=== PATIENT | male | born 1945 | race Caucasian/White ===

== ENCOUNTER 2017-10-09 13:03 | Emergency (ER) | payer OTHER ==
[~2017-10-09] VITALS: Ht 193 cm; Wt 156.5 kg
[~2017-10-09 13:03] MED LIST: ASPIRIN CHEW81 MG PO; AVALIDE 150-121 EACH PO; AVODART0.5 MG PO; CITRACAL PO; CRESTOR10 MG PO; FENOFIBRATE145 MG PO; FUROSEMIDE40 MG PO; GLIMEPIRIDE4 MG PO; HUMALOG100 UNIT/1 SC; HUMULIN R500 UNIT/1; JENTADUETO 2.51 EAC2 PO; LANTUS SOLOSTAR SQ; LOSARTAN-HCTZ1 EAC2 PO; MELOXICAM15 MG PO; METFORMIN HCL1000 MG PO; METOPROLOL TART25 MG PO; MULTIVITAMIN PO; NAPROXEN250 MG PO; NORCO 10-325 T1 EACH PO; NORVASC5 MG PO; OSTEO BI-FLEX1 EAC1 PO; POTASSIUM CHLO10 MEQ PO; TRAZODONE HCL50 MG PO; TRULICITY INJ; VICTOZA 2-0.6 MG/0.1 SQ; VICTOZA 3-0.6 MG/0.1 SC; [UNRECOGNIZED DRUG - OTHER] PO; [UNRECOGNIZED DRUG - OTHER] SC
[2017-10-09 14:06] LABS: BASOPHILS % 0.3 % (0.0-1.0); EOSINOPHILS # (AUTO) 0.2 (0.0-0.4); EOSINOPHILS % 2.5 % (0.0-6.0); HEMATOCRIT 46.5 % (38.2-49.6); HEMOGLOBIN 14.4 g/dL (14.0-18.0); LYMPHOCYTES # (AUTO) 1.8 (1.0-3.2); LYMPHOCYTES % 20.1 % (18.0-39.1); MEAN CORPUSCULAR HEMOGLOBIN 28.5 pg (28-32); MEAN CORPUSCULAR VOLUME 91.9 fL (81-99); MONOCYTES % 10.7 % (4.4-11.3); NEUTROPHILS % 65.9 % (38.7-80.0); PLATELET COUNT 303 x10e3/uL (140-360); RED BLOOD COUNT 5.06 x10e6/uL (4.3-5.7); RED CELL DISTRIBUTION WIDTH 15.3 % (11.7-14.4)
[2017-10-09 14:17] LABS: INR 1.97; PROTHROMBIN TIME 21.1 seconds (11.9-14.5)
[2017-10-09 14:18] LABS: PARTIAL THROMBOPLASTIN TIME 36.6 seconds (23.8-35.5)
[2017-10-09 14:27] LABS: ALBUMIN 3.7 g/dL (3.5-5.0); ALBUMIN/GLOBULIN RATIO 0.9 (0.8-2.0); ANION GAP 17.8 mmol/L (8-16); CALCIUM 10.2 mg/dL (8.4-10.2); CREATININE, SERUM 1.38 mg/dL (0.72-1.25); POTASSIUM 3.8 mmol/L (3.5-5.1)
[2017-10-09 14:34] LABS: CREATINE KINASE MB 2.2 ng/mL (0-5.0)
--- NOTE | 2017-10-09 15:01 | Diagnostic Imaging Report ---
EXAMINATION: CHEST SINGLE (PORTABLE) INDICATION: \S\ERMD ORDER \S\Y COMPARISON: None FINDINGS: AP view TUBES and LINES: None. LUNGS: Lungs are well inflated. Lungs are clear. There is no evidence of pneumonia or pulmonary edema. PLEURA: No pleural effusion or pneumothorax. HEART AND MEDIASTINUM: The cardiomediastinal silhouette is unremarkable.. BONES AND SOFT TISSUES: No acute osseous lesion. Soft tissues are unremarkable. UPPER ABDOMEN: No free air under the diaphragm. IMPRESSION: No acute thoracic abnormality. Signed by: Dr. Myriam Parsons M.D. on 10/09/2017 2:57 PM
[2017-10-09 15:57] LABS: CLARITY,URINE CLEAR (CLEAR); COLOR,URINE YELLOW (YELLOW); LEUKOCYTE ESTERASE ,URINE NEGATIVE (NEGATIVE); NITRITE,URINE NEGATIVE (NEGATIVE); PROTEIN,URINE DIPSTICK NEGATIVE (NEGATIVE)
[2017-10-09 15:58] LABS: BACTERIA,URINE RARE /HPF; BILIRUBIN,URINE NEGATIVE (NEGATIVE); EPITHELIAL CELLS,URINE RARE /LPF; KETONES,URINE NEGATIVE (NEGATIVE); RBC,URINE 0-5 /HPF (0-5); URINE UROBILINOGEN 0.2 mg/dL (0.2 - 1); WBC,URINE (MAN) 0-5 /HPF (0-5)
[2017-10-09 17:26] VITALS: BP 122/75
== END 2017-10-09 16:57 | disposition home or self-care (01) ==
LOC: ER 13:03
DX: R06.00 Dyspnea, unspecified (principal); R07.89 Other chest pain; I10 Essential (primary) hypertension; E11.9 Type 2 diabetes mellitus without complications; I48.91 Unspecified atrial fibrillation; E78.5 Hyperlipidemia, unspecified; G47.30 Sleep apnea, unspecified
CPT/HCPCS: 36415; 71045; 80053; 81001; 82550; 82553; 83880; 84484; 85025; 85610; 85730; 93005; 99284

== ENCOUNTER → 2017-11-05 | Day surgery (SDC) | payer OTHER ==
[~2017-11-05] VITALS: Ht 193 cm; Wt 158.8 kg
[~2017-11-05] MED LIST changes: +BENZOCAINE 20% SPR 60 ML CAN ONE; +CITRACAL + D E1 EACH PO; +DEXAMETHASONE SOD PHOS INJ 4 MG/ML VIAL IV ONE; +ETOMIDATE 2 MG/ML 10 ML INJ IV ONE; +Farxiga PO; +HUMULIN R100 UNIT/2 SC; -HUMULIN R500 UNIT/1; +HUMULIN R500 UNIT/1 SC; +METFORMIN HCL500 MG PO; +MIDAZOLAM HCL 2 MG/2 ML VIAL ONE; +MULTI-VITAMIN1 EACH PO; +NEXIUM40 MG PO; +ONDANSETRON HCL INJ 2 MG/ML VIAL IV ONE; +Prevagen PO; +ROCURONIUM BROMIDE 10 MG/ML 5ML VIAL IV ONE; +SEVOFLURANE INHAL SOLN 250 ML PEN BTL INH ONE; +SODIUM CHLORIDE 0.9% 1000ML 0 ML ONE; +SUCCINYLCHOLINE 200 MG/10 ML SYR IV ONE; +XARELTO20 MG PO
[2017-11-05 16:25] VITALS: BP 138/86
== END | disposition home or self-care (01) ==
LOC: CATH LAB 10:54
PROVIDERS: ATTEND Internal Medicine Interventional Cardiology
DX: I35.0 Nonrheumatic aortic (valve) stenosis (principal); I87.2 Venous insufficiency (chronic) (peripheral); E11.9 Type 2 diabetes mellitus without complications; Z79.84 Long term (current) use of oral hypoglycemic drugs; I10 Essential (primary) hypertension; I48.91 Unspecified atrial fibrillation; E78.00 Pure hypercholesterolemia, unspecified; R01.1 Cardiac murmur, unspecified; Z79.01 Long term (current) use of anticoagulants
CPT/HCPCS: 36415; 82948; 93312; 93320; 93325; J1100; J2250; J2405; J7030